=== PATIENT | female | born 1985 | race Caucasian/White ===

== ENCOUNTER 2017-07-18 16:17 | Emergency (ER) | payer OTHER ==
[~2017-07-18 16:17] MED LIST: ALBUTEROL17 GM INH; AMOXICILLIN875 MG PO; ATARAX PO; AUGMENTIN875 MG PO; AURALGAN OTIC S14 ML OT; BIRTH CONTROL PILL; BIRTH CONTROL PILL PO; CIPRO PO; EC-NAPROSYN500 MG PO; FEMARA2.5 MG PO; FIORICET 50-321 EACH PO; FLEXERIL PO; GLUCOPHAGE500 MG; HUMIBID CS TABL1 TAB PO; IBUPROFEN PO; LISINOPRIL PO; LOESTRIN FE 1.51 TAB PO; MEDROL PO; METFORMIN HCL500 M1 PO; METFORMIN PO; METHYLDOPA500 MG PO; MOBIC PO; MUCINEX DM1 TAB.SR . PO; NABUMETONE PO; NAPROSYN500 MG PO; PHENERGAN DM1 ML PO; POLYTRIM EYE DR10 ML OS; PREDNISONE PO; PYRIDIUM PO; ROBAXIN500 MG PO; ROBITUSSIN A-C S5 ML PO; SUDAFED PO; ULTRAM PO; VIBRAMYCIN100 M1 PO; VOLTAREN50 MG PO; ZITHROMAX PO
[2017-07-18] MEDS ORDERED: NATURAL VITA100 UNIT PO (16:27)
[2017-07-18] MEDS ORDERED: BP MED PO (16:27)
[2017-07-18 17:22] LABS: URINE SOURCE CLEAN CATCH
[2017-07-18 17:27] LABS: BASOPHIL# 0.1 X10e3 (0-0.3); BASOPHIL% 0.8 % (0-2.5); EOSINOPHIL# 0.3 X10e3 (0-0.7); EOSINOPHIL% 2.4 % (0.0-7.0); LYMPHOCYTE# 2.6 X10e3 (1.0-3.5); LYMPHOCYTE% 24.2 % (17.0-45.0); MEAN CELL VOLUME 91.9 FL (83-96); MEAN CORPUSCULAR HEMOGLOBIN 31.5 PG (28-34); MEAN CORPUSCULAR HGB CONC 34.2 g/dL (30-36); MEAN PLATELET VOLUME 7.7 FL (6.5-11.5); MONOCYTE# 0.5 X10e3 (0-1.0); MONOCYTE% 4.8 % (3.0-12.0); NEUTROPHIL# 7.4 X10e3 (1.5-7.1); NEUTROPHIL% 67.8 % (40-75); PLATELET COUNT 202 X10e3 (140-420); RED BLOOD COUNT 4.46 X10e (3.90-5.30); RED CELL DISTRIBUTION WIDTH 12.9 % (11.0-15.5); WHITE BLOOD COUNT 10.8 X10e3 (4.0-10.5)
[2017-07-18 17:30] LABS: URINE APPEARANCE CLEAR; URINE BILIRUBIN NEG (NEG); URINE BLOOD 3+ (NEG); URINE COLOR YELLOW; URINE GLUCOSE NEG (NORM); URINE KETONE NEG (NEG); URINE LEUKOCYTE ESTERASE NEG (NEG); URINE NITRATE NEG (NEG); URINE PROTEIN NEG (NEG); URINE UROBILINOGEN 0.2 MG/DL (NORM)
[2017-07-18 17:32] LABS: CULTURE INDICATED? NO; MICRO INDICATED? YES; URINE BACTERIA NEG (NEG); URINE RBC 0-2 /[HPF] (0-2); URINE SQUAMOUS EPITHELIAL CELL OCCAS /[HPF]; URINE WBC 0-2 /[HPF] (0-5)
[2017-07-18 17:33] LABS: DIFF IND NO
[2017-07-18 17:44] LABS: BILIRUBIN, DIRECT 0.1 mg/dL (0.0-0.2); BILIRUBIN,INDIRECT 0.4 mg/dL (0.0-0.9); BILIRUBIN,TOTAL 0.5 mg/dL (0.2-2.0); BUN/CREATININE RATIO 12.85; CALCIUM SERUM 8.1 mg/dL (8.4-10.2); CREATININE SERUM 0.7 mg/dL (0.6-1.4); GLOM FILT RATE Estimated 113.8 mL/min (>60); POTASSIUM 3.3 mmol/L (3.5-5.1)
[2017-07-21 13:31] LABS: CHLAMYDIA TRACH Detected (Not Detected); N GONOR Not Detected (Not Detected)
== END 2017-07-18 18:21 | disposition home or self-care (01) ==
LOC: SED 16:17
PROVIDERS: Physician Assistant Medical
DX: N76.0 Acute vaginitis (principal); B96.89 Other specified bacterial agents as the cause of diseases classified elsewhere; Z79.899 Other long term (current) drug therapy; Z88.5 Allergy status to narcotic agent
CPT/HCPCS: 36415; 80048; 80076; 81003; 84703; 85025; 87210; 87491; 87591; 87808; 87905; 99284